=== PATIENT | female | born 1995 | race Two or more races ===

== ENCOUNTER 2023-11-30 20:03 | Emergency (ER) | payer MEDICAID, OTHER ==
[~2023-11-30] VITALS: Ht 157.5 cm; Wt 51.8 kg
[2023-11-30] MEDS ORDERED: AMOX875T4 PO (22:36)
[2023-11-30 23:37] VITALS: BP 119/74; PULSE 78; RESP 20; TEMP 98; O2SAT 100
[2023-11-30] MEDS: TETANUS-DIPTH-ACEL PERTUSSIS 0.5ML SYR Tdap IM ONE (23:48)
== END 2023-11-30 23:55 | disposition home or self-care (01) ==
LOC: ER 20:03
DX: S60.410A Abrasion of right index finger, initial encounter (principal); S60.413A Abrasion of left middle finger, initial encounter; Z79.899 Other long term (current) drug therapy; W54.0XXA Bitten by dog, initial encounter; Y93.89 Activity, other specified; Y92.89 Other specified places as the place of occurrence of the external cause; Y99.8 Other external cause status
CPT/HCPCS: 90471; 90715

== ENCOUNTER 2024-03-03 11:20 | Emergency (ER) | payer SELFPAY ==
[~2024-03-03] VITALS: Ht 157.5 cm; Wt 49.0 kg
[~2024-03-03 11:20] MED LIST: AMOX875T4 PO
[2024-03-03 12:22] VITALS: BP 113/75; PULSE 89; RESP 18; TEMP 98.4; O2SAT 100
[2024-03-03] MEDS ORDERED: TRIA0.02 TOP (12:53)
[2024-03-03] MEDS ORDERED: CEPH500C PO (12:53)
== END 2024-03-03 12:51 | disposition home or self-care (01) ==
LOC: ER 11:23
DX: L30.1 Dyshidrosis [pompholyx] (principal); L08.89 Other specified local infections of the skin and subcutaneous tissue; Z79.899 Other long term (current) drug therapy